=== PATIENT | male | born 1990 | race Caucasian/White ===

== ENCOUNTER 2022-10-06 21:58 | Emergency (ER) | payer SELFPAY ==
[2022-10-06 22:05] VITALS: BP 156/101; PULSE 88; RESP 18; TEMP 98.3; BMI 29.0
[2022-10-06] MEDS ORDERED: DEXAMETHASONE SOD PHOSPHATE 10 MG/1 ML VIAL IM ONE (22:32)
[2022-10-06] MEDS ORDERED: DEXAMETHASONE SOD PHOSPHATE 10 MG/1 ML VIAL ONE (22:35)
[2022-10-06] MEDS ORDERED: KETOROLAC TROMETHAMINE 15 MG/ML VIAL IM ONE (22:40)
[2022-10-06] MEDS ORDERED: KETOROLAC TROMETHAMINE 15 MG/ML VIAL ONE (22:43)
== END 2022-10-06 22:51 | disposition home or self-care (01) ==
LOC: JERFT 21:58
PROC: 3E023GC Introduction of Other Therapeutic Substance into Muscle, Percutaneous Approach (ICD-10-PCS; principal; 2022-10-06)
PROC: 3E0233Z Introduction of Anti-inflammatory into Muscle, Percutaneous Approach (ICD-10-PCS; 2022-10-06)
DX: H92.02 Otalgia, left ear (principal); R07.0 Pain in throat; R13.10 Dysphagia, unspecified; J02.9 Acute pharyngitis, unspecified
CPT/HCPCS: 87651; 99284-25; J1100

== ENCOUNTER 2023-03-21 04:49 | Emergency (ER) | payer SELFPAY ==
[2023-03-21 05:09] VITALS: BP 162/100; PULSE 87; RESP 20; TEMP 99.2; BMI 29.8
[2023-03-21] MEDS ORDERED: ONDANSETRON *ODT* 4 MG TABLET SL ONE (06:42)
[2023-03-21] MEDS ORDERED: ACETAMINOPHEN 500 MG TABLET (FP) PO ONE (06:42)
== END 2023-03-21 07:08 | disposition home or self-care (01) ==
LOC: JER 04:49
DX: R05.9 Cough, unspecified (principal); R11.10 Vomiting, unspecified; M79.10 Myalgia, unspecified site; R50.9 Fever, unspecified; J06.9 Acute upper respiratory infection, unspecified; B34.9 Viral infection, unspecified; Z20.822 Contact with and (suspected) exposure to COVID-19
CPT/HCPCS: 0241U-QW; 99283-25; Q0162